=== PATIENT | female | born 1960 | race Two or more races ===

== ENCOUNTER 2018-12-18 02:34 | Emergency (ER) | payer OTHER ==
[~2018-12-18] VITALS: Ht 167.6 cm; Wt 89.2 kg
[2018-12-18] MEDS ORDERED: IBUPROFEN 600 MG TABLET PO ONE (03:30)
[2018-12-18] MEDS ORDERED: OXYcodone/APAP 5/325MG TABLET PO ONE (03:30)
[2018-12-18 03:54] LABS: BASOPHILS # (AUTO) 0.03 x10^3/uL (0-0.1); BASOPHILS % (AUTO) 0 % (0-1); EOSINOPHILS # (AUTO) 1.24 x10^3/uL (0-0.4); EOSINOPHILS % (AUTO) 12 % (1-7); LYMPHOCYTES # (AUTO) 1.41 x10^3/uL (1-3.4); LYMPHOCYTES % (AUTO) 13 % (22-44); MD NO; MEAN CORPUSCULAR HEMOGLOBIN 29.8 pg (27.0-34.8); MEAN CORPUSCULAR HGB CONC 33.1 g/dL (32.4-35.8); MEAN PLATELET VOLUME 6.9 fL (7.4-10.4); MONOCYTES # (AUTO) 0.79 x10^3/uL (0.2-0.8); MONOCYTES % (AUTO) 7 % (2-9); NEUTROPHILS # (AUTO) 7.25 x10^3/uL (1.8-6.8); NEUTROPHILS % (AUTO) 68 % (42-75); PLATELET COUNT 541 x10^3/uL (130-400); RED BLOOD COUNT 4.21 x10^6/uL (3.82-5.3)
[2018-12-18 03:57] LABS: ALANINE AMINOTRANSFERASE 20 U/L (12-78); ALBUMIN 3.5 g/dL (3.4-5.0); ANION GAP 7 mmol/L (5-15); CALCIUM 9.1 mg/dL (8.5-10.1); CHLORIDE 110 mmol/L (98-107); CREATININE 0.91 mg/dL (0.55-1.02)
[2018-12-18] MEDS ORDERED: OXYcodone/APAP 5/325MG TABLET ONE (03:57)
[2018-12-18] MEDS ORDERED: IBUPROFEN 600 MG TABLET ONE (03:57)
[2018-12-18 04:00] VITALS: BP 155/81
[2018-12-18 04:01] LABS: ALKALINE PHOSPHATASE 89 U/L (45-117); BILIRUBIN,TOTAL 0.3 mg/dL (0.2-1.0); TOTAL PROTEIN 7.9 g/dL (6.4-8.2); TROPONIN I < 0.015 ng/mL (0.000-0.045)
--- NOTE | 2018-12-18 04:01 | NUR ---
pt here for left shoulder pain. pt medicated and waiting for xray results. call light in reach
--- NOTE | 2018-12-18 04:44 | NUR ---
Patient given discharge instructions and they have confirmed that they understand the instructions. Patient ambulatory with steady gait.
== END 2018-12-18 04:47 | disposition home or self-care (01) ==
LOC: ED 04:41
DX: M25.512 Pain in left shoulder (principal)
CPT/HCPCS: 36415; 71046; 80053; 84484; 85025; 93005; 99284

== ENCOUNTER 2019-02-09 08:02 | Emergency (ER) | payer OTHER ==
[~2019-02-09] VITALS: Ht 165.1 cm; Wt 84.2 kg
[2019-02-09 08:04] VITALS: BP 159/76
[2019-02-09] MEDS ORDERED: KETOROLAC 30 MG/1 ML IM ONE (08:30)
[2019-02-09] MEDS ORDERED: KETOROLAC 30 MG/1 ML ONE (08:37)
== END 2019-02-09 09:07 | disposition home or self-care (01) ==
LOC: ED 09:06
DX: M71.22 Synovial cyst of popliteal space [Baker], left knee (principal)
CPT/HCPCS: 96372; 99283; J1885